=== PATIENT | female | born 1990 | race Caucasian/White ===

== ENCOUNTER 2017-04-24 11:04 | Emergency (ER) | payer SELFPAY ==
--- NOTE | ~2017-04-24 | ER ---
PATIENT'S NAME: DANIS GALLEGO [facility] AGE: 26 Y [address] ROOM: [place] [address] LOCATION: ED ADMIT DATE: 04/24/2017 ER/Outpatient Report DISCHARGE DATE: 04/24/2017 FAMILY PHYSICIAN: Silvio Olsen ATTENDING PHYSICIAN: Clayton Ramirez Admission date and time documented in the medical record. I saw the patient at 1120 hours. CHIEF COMPLAINT: Fluid retention, swelling of the hands, feet, face, stomach. HISTORY OF PRESENT ILLNESS: This patient is a 26-year-old female, who started having some swelling of her hands, feet, face, and abdomen this last . She also had developed some left flank pain. She got [id number] diuretics that she took on Sunday and Sunday. She did urinate a lot. Swelling today is not as bad as it was on Sunday and Sunday. Still has a little bit of left flank pain. No dysuria. No abdominal pain, chest pain, shortness of breath. No lightheadedness, dizziness, syncope, or near syncope. No fall or trauma. No recent colds, coughs, flus, fever, chills, or sweats. No headache, eyes, ears, nose, throat, neck, or spine pain. She has swelling of her hands and feet, a little bit in her face yet. No skin eruptions or rash. Does have a history of ADD, depression. No neuro changes or endocrine problems. HOME MEDICATIONS: See attached medication list. ALLERGIES: NONE. SOCIAL HISTORY: The patient smokes about 10 cigarettes a day. Nondrinker. No illicit drugs. SIGNIFICANT PAST MEDICAL HISTORY: ADD, tobacco abuse, chronic back pain, degenerative disk disease, lumbar spine compression fractures, nephrolithiasis. OPERATIONS: Right ankle surgery. REVIEW OF SYSTEMS: All systems reviewed by me are negative with the exception of those discussed in the history of present illness. PATIENT'S NAME: DANIS GALLEGO [facility] AGE: 26 Y [address] ROOM: [place] [address] LOCATION: ED ADMIT DATE: 04/24/2017 ER/Outpatient Report DISCHARGE DATE: 04/24/2017 FAMILY PHYSICIAN: Silvio Olsen ATTENDING PHYSICIAN: Clayton Ramirez PHYSICAL EXAMINATION: VITAL SIGNS: Temperature 98.6 tympanic, pulse 108, respirations 20, blood pressure 153/83, O2 saturation on room air is 95%. HEAD: Normocephalic. EYES, EARS, NOSE, THROAT: Clear. Mucous membranes moist. NECK: Negative. SPINE: Negative. LUNGS: Clear, good air flow. No rales, rhonchi, or wheezes. HEART: Regular. Pulses are palpable. ABDOMEN: Soft, nondistended, nontender. Good bowel tones. No organomegaly or abnormal mass palpable. Some tenderness across her lower back to percussion. EXTREMITIES: No peripheral cyanosis or deformities. Some mild swelling, nonpitting of the hands and feet. NEUROVASCULAR: Intact. SKIN: Clear. LABORATORY DATA AND X-RAYS: White count 6300, 54 segs, 37 lymphs, 5 monos, 3 eos, 1 baso, hemoglobin is 12.9, hematocrit 38.8, platelet count is 279,000. CMS was normal except for an elevated AST of 56, proBNP was 202, urine showed rare whites, negative reds, 2-5 epithelial cells, negative bacteria per high-powered field. CT scan of the abdomen and pelvis with renal stone protocol showed small stones intrarenally bilaterally, but no stones in the ureters, no hydronephrosis. CT scan was read by Radiology, see dictated transcribed report. IMPRESSION: Edema, fluid retention, etiology uncertain. PLAN: The patient dismissed home. Observation. Activity as tolerated. Continue home medications and care. Lasix 20 mg once a day, #7. Followup with personal physician in 1 week or sooner if needed. Discussion ensued with the patient concerning my findings and recommendations, she understands. CLAYTON RAMIREZ MD SDS/modl PATIENT'S NAME: DANIS GALLEGO [facility] AGE: 26 Y [address] ROOM: [place] [address] LOCATION: ED ADMIT DATE: 04/24/2017 ER/Outpatient Report DISCHARGE DATE: 04/24/2017 FAMILY PHYSICIAN: Silvio Olsen ATTENDING PHYSICIAN: Clayton Ramirez /[id number] d: [id number] t: 04/27/17 1813, OUTPATIENT REPORT
[2017-04-24 11:27] LABS: BILIRUBIN URINE NEGATIVE (NEGATIVE); BLOOD URINE NEGATIVE /UL (NEGATIVE); COLOR URINE YELLOW (YELLOW); GLUCOSE URINE NEGATIVE (NEGATIVE); KETONE URINE NEGATIVE (NEGATIVE); LEUKOCYTES URINE 25 /UL (NEGATIVE); NITRITE URINE NEGATIVE (NEGATIVE); PROTEIN URINE NEGATIVE (NEGATIVE); SPEC GRAVITY URINE 1.015 (1.003-1.035); TURBIDITY URINE CLEAR (CLEAR); UROBILINOGEN URINE NORMAL (NORMAL)
[2017-04-24 11:35] LABS: BACTERIA URINE NEGATIVE (NEGATIVE); RBC URINE NEGATIVE #/HPF (NEGATIVE); WBC URINE RARE #/HPF (NEGATIVE)
[2017-04-24 12:05] LABS: BASOPHIL # 0.1 K/uL (0.0-0.2); BASOPHIL % 1.1 %; EOSINOPHIL # 0.2 K/uL (0.0-0.5); EOSINOPHIL % 2.5 %; HEMATOCRIT 38.8 % (33.0-46.0); HEMOGLOBIN 12.9 g/dL (11.0-15.0); IMMATURE GRANULOCYTE % 0.2 %; LYMPHOCYTE # 2.3 K/uL (0.8-4.0); MCH 30.9 pg (27.0-34.0); MCHC 33.2 gm/dL (32.0-36.5); MCV 92.8 fl (83.0-98.0); MONOCYTE # 0.3 K/uL (0.0-1.0); MONOCYTE % 4.9 %; MPV 9.1 fl (9.4-12.4); NEUTROPHIL # (ANC) 3.4 K/uL (1.8-7.8); NEUTROPHIL % 54.3 %; NRBC % 0 /100WBC (0-0.00); PLATELET COUNT 278 K/uL (150-450); RBC 4.18 M/uL (3.50-5.00); RDW-CV 12.4 % (11.9-14.6); WBC 6.3 K/uL (4.0-11.0)
[2017-04-24 12:23] LABS: ALBUMIN 3.7 gm/dL (3.5-5.0); ANION GAP 12.2 (10.0-19.0); CALCIUM 9.1 mg/dL (8.5-10.5); CREATININE 0.9 mg/dL (0.5-1.1); POTASSIUM 4.2 mMol/L (3.7-5.1); TOTAL BILIRUBIN 0.3 mg/dL (0.0-1.5); TOTAL PROTEIN 7.3 g/dL (6.0-8.4)
== END 2017-04-24 13:36 | disposition disaster alternative care site (69) ==
LOC: GMED 11:04
PROVIDERS: Emergency Medicine
DX: R60.9 Edema, unspecified (principal); F17.210 Nicotine dependence, cigarettes, uncomplicated; M54.9 Dorsalgia, unspecified; G89.29 Other chronic pain; F98.8 Other specified behavioral and emotional disorders with onset usually occurring in childhood and adolescence; F32.9 Major depressive disorder, single episode, unspecified; Z98.890 Other specified postprocedural states; Z79.899 Other long term (current) drug therapy